=== PATIENT | female | born 1990 | race Caucasian/White ===

== ENCOUNTER → 2017-03-06 | Outpatient (CLI) | payer OTHER ==
[~2017-03-06] MED LIST: CELEXA20 MG PO; CIPRO 500MG TA500 MG PO; CYMBALTA60 MG PO; DICLEGIS1 TCP PO; FERROUS SULFAT325 M2 PO; HYDROXYZINE HCL25 M1 PO; K-DUR 20MEQ TA20 MEQ PO; LASIX 20MG. TAB20 MG PO; LEVAQUIN750 MG PO; LYRICA25 M1 PO; LYRICA50 MG PO; MACROBID100 M3 PO; MEDROL 4MG. DOSE4 MG PO; MOTRIN 400MG.400 MG PO; NOMEDS XX; PERCOCET 5/3251 EACH PO; PRENATAL PLUS1 TA1 PO; PROCARDIA10 MG; RELAFEN 750MG750 MG OR; SERTRALINE 50MG50 MG PO; ULTRAM 50 MG TA50 MG PO; ZOLOFT 50MG TAB50 MG PO; ZOLOFT25 MG PO; [UNRECOGNIZED DRUG - OTHER] PO
--- NOTE | 2017-03-07 12:19 | RADIOLOGY REPORT PS360 ---
PROCEDURE: 2-D M-mode and color Doppler study INDICATIONS FOR THE TEST: Chest painX COPD Heart MurmurX Tobacco SmokingX Palpitations Fatigue Syncope Edema HypertensionXDiabetes Mellitus Rheumatic Fever SOB KUHN Obesity Hyperlipidemia Family History HD Additional History PATIENT INFORMATION HEIGHT: 65 WEIGHT:230 GENDER: Female B/P:127/70 2-D/M-MODE INTERPRETATION: 2-D MEASUREMENTS OBSERVED VALUES IN CMS Right Ventricular Dimension (RVDd) 1.9 Interventricular Septum (Thickness)(IVsd) .9 Left Ventricular Internal Dimensions(LVIDd) 5.7 Left Ventricular Posterior Wall (Thickness)(LVPWd) 1.0 Aortic Root 2.9 Aortic Cusp Separation 1.8 Left Atrial Dimensions (LAD) 3.0 2D 1. The left atrium is normal size, left ventricle is normal size, there is no concentric left ventricular hypertrophy, visually estimated ejection fraction 55% with no obvious regional wall motion abnormality. 2. The right atrium and right ventricle are normal size and contractility. 3. The aortic, mitral, tricuspid and pulmonic valve are structurally normal. 4. No significant pericardial effusion noted. DOPPLER INTERROGATION: Doppler interrogation of the aortic mitral and tricuspid valvular presence of trace mitral and tricuspid regurgitation, tricuspid regurgitant jet velocity insufficient for calculation of the right ventricular systolic pressure, diastolic parameters are within normal range. CONCLUSION: 1. Normal left ventricular size, preserved left ventricular systolic function, visually estimated ejection fraction 55% with no obvious regional wall motion abnormality, diastolic parameters are within normal range. 2. Trace mitral and tricuspid regurgitation. 3. No significant pericardial effusion noted.
== END ==
LOC: RT 13:20
DX: R01.1 Cardiac murmur, unspecified (principal)

== ENCOUNTER 2017-06-16 21:36 | Emergency (ER) | payer OTHER ==
[~2017-06-16] VITALS: Ht 165.1 cm; Wt 98.4 kg
[2017-06-16 21:55] LABS: URINE BILIRUBIN - DIPSTICK NEGATIVE (NEG); URINE BLOOD NEGATIVE (NEG)
[2017-06-16] MEDS ORDERED: VENLAFAXINE HYD75 M1 PO (21:58)
[2017-06-16] MEDS ORDERED: LABETALOL HCL200 MG PO (21:59)
[2017-06-16] MEDS ORDERED: CYCLOBENZ5 MG PO (21:59)
[2017-06-16] MEDS ORDERED: POTASSIUM CHLO10 MEQ PO (22:00)
[2017-06-16] MEDS ORDERED: MONO-LINYAH1 TAB PO (22:00)
[2017-06-16] MEDS ORDERED: VITAMIN D31000 IU PO (22:01)
--- OUTSIDE RECORDS SUMMARY | 2017-06-16 22:19 | External Medical Summary Rpt ---
Author Author [employer] Organization [employer] Address Unknown Phone Unavailable Purpose Continuity of Care Document - through 2016
--- OUTSIDE RECORDS SUMMARY | 2017-06-16 22:19 | External Medical Summary Rpt ---
Author Author [employer] Bhatti, [employer] Organization [employer] Address Unknown Phone Unavailable
--- OUTSIDE RECORDS SUMMARY | 2017-06-16 22:19 | External Medical Summary Rpt ---
Demographics Preferred Language Wolof Marital Status Unknown Pentecostal Affiliation Unknown Race Unknown Ethnic Group Unknown Author Author BR[employer] Address Unknown Phone Immunization No patient found.
--- OUTSIDE RECORDS SUMMARY | 2017-06-16 22:19 | External Medical Summary Rpt ---
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 Name Role Phone Yohan Muhammad Unavailable Jesus JORDAN MD, Yohan Muhammad III, MD Purpose Continuity of Care Document - 04-16-2013 through 2016 Problems Code Diagnosis DOS Provider Status 305.1 305.1 04-16-2013 [place] TOBACCO USE [facility] 915.6 915.6 04-16-2013 [place] FOREIGN [facility] BODY [facility] E920.8 E920.8 04-16-2013 [place] ACC-CUTTING [facility] NEC Allergies, Adverse Reactions, Alerts Type Drug Allergy Adverse Reaction to Substance Substance Reaction Severity Cefaclor I-HIVES Intermediate Medications Na ND Rx Da Fi Fi Am Da Di Ph RX Ph St me C No te ll ll ou ys ag ar # ys at rm s nt no ma ic us Or Da si cy ia de te s n re d LI 63 06 0 No DO 32 -1 CA 30 5- Lo IN 20 20 ng E 11 13 er HC 0 L Ac 1% ti ve AL Vital Signs 04-16-2013 13:30 Name Value Interpretat Reference Comment ion Range Body 98.1 [degF] Temperature BP 86 mm[Hg] Diastolic BP Systolic 145 mm[Hg] Heart 96 /min Rate/Pulse O2% 97 % Respiratory 18 /min Rate 04-16-2013 13:29 Name Value Interpretat Reference Comment ion Range Body 98.1 [degF] Temperature 04-16-2013 12:54 Name Value Interpretat Reference Comment ion Range BP 89 mm[Hg] Diastolic BP Systolic 136 mm[Hg] Heart 97 /min Rate/Pulse O2% 97 % Respiratory 20 /min Rate Procedures Procedure DOS Code Location Performer Comment INCIS W 86.05 Yohan Muhammad BODY OR NIKKI MANUEL DEV FROM SKIN & SUBCUT TISSUE Encounters Encounter Start End Date Code Location Performer Type Date Emergency EUGENIO Muhammad (ER) 3 12:42 3 13:30 [facility] Yohan May
--- OUTSIDE RECORDS SUMMARY | 2017-06-16 22:19 | External Medical Summary Rpt ---
Author Author , BRITTA Landin BRIT[employer] Address Unknown Phone [email or web address] Care Team Providers Care Bible Reader Name Role Phone Yohan Muhammad Unavailable Jesus JORDAN MD, Yohan Muhammad III, MD Purpose Continuity of Care Document - 04-16-2013 through 2016 Problems Code Diagnosis DOS Provider Status 305.1 305.1 04-16-2013 [place] TOBACCO USE [facility] 915.6 915.6 04-16-2013 [place] FOREIGN [facility] BODY [facility] E920.8 E920.8 04-16-2013 [place] ACC-CUTTING [facility] NEC Allergies, Adverse Reactions, Alerts Type Drug [...] EUGENIO Muhammad (ER) 3 12:42 3 13:30 [facility] Yohan May
--- OUTSIDE RECORDS SUMMARY | 2017-06-16 22:19 | External Medical Summary Rpt ---
Demographics Preferred Language Estonian Marital Status Unknown Advent Affiliation Unknown Race Unknown Ethnic Group Unknown Author Author BRITTA Address Unknown Phone Immunization No patient found.
[2017-06-16 22:33] LABS: URINE SQUAMOUS CELLS OCC #/hpf (0-5)
--- NOTE | 2017-06-17 00:08 | Emergency Room Report ---
See Addendum History of Present Illness Time Seen by [id number] Presenting Problem in Triage Pt arrived:Walked Presenting Problem:C/O LOW BACK PAIN X 3-4 DAYS. WORSE TONIGHT. 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 N Clinical Suspician of Infection? N Mental Status: 1 - Regular (Normal Baseline) Sepsis Risk:Low Sepsis Risk Have you (or family members/close friends) recently traveled outside the [place]? N If Yes, where/when: Have you had exposure to infectious disease within the past month? N TB? Other? Specify: Source patient, RN notes reviewed, family, old records Exam Limitations no limitations Comment rt flank pain over the last day with no gross hematuria and no dysuria - has had kidney stone in past Cardiac Chest Pain Chest pain indicative of cardiac No Timing/Duration this evening Severity moderate ALLERGIES Coded Allergies: cefaclor (From CECLOR) (06/13/16) Home Medications Reported Medications Sertraline Hcl (Sertraline 50MG) 75 MG PO DAILY #30 HYDROXYZINE HCL (Hydroxyzine HCl) 25 MG PO QHS #30 VENLAFAXINE HCL (Venlafaxine HCl ER) 75 MG PO DAILY #90 Cyclobenzaprine Hcl (Cyclobenzaprine) 5 MG PO DAILY #30 LABETALOL HCL (Labetalol HCl) 200 MG PO BID #60 Potassium Chloride (POTASSIUM CHLORIDE 10mEq CAP) 10 MEQ PO DAILY #30 NORGESTIMATE-ETHINYL ESTRADIOL (Bollinger-Linyah 28 Tablet) 1 TAB PO DAILY #28 CHOLECALCIFEROL (VITAMIN D3) (Vitamin D) 1,000 IUNITS PO Q 48 HOURS History Medical History General CAD? No Angina: No [place]: No Hypertension? Yes Hyperlipidemia? No CHF? No DVT? No PE? No COPD? No Asthma? No Anemia? No GERD? No Gastric ulcers? No GI Bleed? No Hernia? Yes Thyroid Problems? No Hypothyroidism? No CVA? No Seizures? No Diabetes? No Renal Insuffiency? No End Stage Renal Disease? No UTI? Yes Stones? Yes BPH? No GB Disease: No Nephritic Syndrome? No Asplenia? No Hepatitis? No Sickle Cell Disease? No Arthritis? Yes Migraines? No Cataracts? No Glaucoma? No MRSA? No TB? No Anxiety? No Depression? No More? 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 Respiratory denies cough, denies shortness of breath, denies wheezing Cardiovascular denies chest pain, denies palpitations, denies syncope Gastrointestinal denies abdominal pain, denies diarrhea, denies vomiting Genitourinary see HPI. denies: abnormal vaginal bleeding, dysuria, frequency, hesitancy, hematuria. Musculoskeletal denies back pain, denies joint pain, denies joint swelling, denies neck pain Skin denies rash Psychiatric/Neurological denies headache, denies seizure Physical Exam Vital Signs Vital Signs Date Time Temp Pulse Resp B/P Pulse O2 O2 Flow FiO2 Ox Delivery Rate 06/16 2152 99.0 105 18 142/74 98 - WBC >12,000 or <4,000 or 10% bands? 2 or more SIRS Criteria Met? B/P:142/74 MAP:96 Creatinine >2.0? UA output<0.5ml/kg/hr for 2 hrs? Platelet count >100,000? Lactate >2.0mmol/1? INR >1.2 or PTT > than 60 sec? Evidence of Organ Dysfunction? Provider documented clinical suspician of infection? N Sepsis Criteria Count: 1 Sepsis Risk: Low Sepsis Risk General Appearance no apparent distress Eye Exam - bilateral eye PERRL, bilateral eye EOMI Ear, Nose, Throat normal ENT inspection Neck supple Respiratory Status No: respiratory distress. Cardiovascular regular rate/rhythm Peripheral Pulses Pulses normal Yes Gastrointestinal soft Back no CVA tenderness, no vertebral tenderness, bowel/bladder continent Extremities normal inspection Strength 4 Upper Ext (L), 4 Upper Ext (R), 4 Lower Ext (L), 4 Lower Ext (R) Neurologic alert, director network development II-XII nml as tested, no motor/sensory deficits Reflexes Reflexes normal No Mental status normal mood/affect Skin no rash cons.w/shingles Medical Decision Making LABS/Meds/Orders Pt receiving controlled substance in ED? No Results/Orders Laboratory Tests 06/16/172149: Urine Color YELLOW, Urine Appearance CLEAR, Urine pH 6.0, Ur Specific [place] >= 1.030, Urine Protein NEGATIVE, Urine Ketones NEGATIVE, Urine Blood NEGATIVE, Urine Nitrate NEGATIVE, Urine Bilirubin NEGATIVE, Urine Urobilinogen 0.2, Ur Leukocyte Esterase NEGATIVE, Urine RBC 3-5, Urine WBC OCC, Ur Squamous Epith Cells OCC, Urine Bacteria TRACE, Urine Mucus 3+, Urine Glucose NEGATIVE Orders Procedure Date/time Status CULTURE, URINE 06/17 8 Active URINALYSIS/COMPLETE 06/16 2151 Complete Departure Departure Time of Disposition 0001 Disposition DC Home or Self Care(routine) Clinical Impression Primary Impression: Acute flank pain Condition STABLE Referrals Toan Stewart MD (Family) Patient Instructions DI for Flank Pain Additional Instructions fluids and strain urine and call pcp about culture results Discharge Counseling Counseled pt/family regarding diagnosis, test results, medications/RX, follow up needs ED Critical Care Critical Care No at 0009
--- NOTE | 2017-06-17 00:08 | Emergency Room Report ---
See Addendum History of Present Illness Time Seen by [id number] Presenting Problem in Triage Pt arrived:Walked Presenting Problem:C/O LOW BACK PAIN X 3-4 DAYS. WORSE TONIGHT. 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 N Clinical Suspician of Infection? N Mental Status: 1 - Regular (Normal Baseline) Sepsis Risk:Low Sepsis Risk Have you (or family members/close friends) recently traveled outside the [place]? N If Yes, where/when: Have you had exposure to infectious disease within the past month? N TB? Other? Specify: Source patient, RN notes reviewed, family, old records Exam Limitations no limitations Comment rt flank pain over the last day with no gross hematuria and no dysuria - has had kidney stone in past Cardiac Chest Pain Chest pain indicative of cardiac No Timing/Duration this evening Severity moderate ALLERGIES Coded Allergies: cefaclor (From CECLOR) (06/13/16) Home Medications Reported Medications Sertraline Hcl (Sertraline 50MG) 75 MG PO DAILY #30 HYDROXYZINE HCL (Hydroxyzine HCl) 25 MG PO QHS #30 VENLAFAXINE HCL (Venlafaxine HCl ER) 75 MG PO DAILY #90 Cyclobenzaprine Hcl (Cyclobenzaprine) 5 MG PO DAILY #30 LABETALOL HCL (Labetalol HCl) 200 MG PO BID #60 Potassium Chloride (POTASSIUM CHLORIDE 10mEq CAP) 10 MEQ PO DAILY #30 NORGESTIMATE-ETHINYL ESTRADIOL ([place]-Linyah 28 Tablet) 1 TAB PO DAILY #28 CHOLECALCIFEROL (VITAMIN D3) (Vitamin D) 1,000 IUNITS PO Q 48 HOURS History Medical History General CAD? No Angina: No [place]: No Hypertension? Yes Hyperlipidemia? No CHF? No DVT? No PE? No COPD? No Asthma? No Anemia? No GERD? No Gastric ulcers? No GI Bleed? No Hernia? Yes Thyroid Problems? No Hypothyroidism? No CVA? No Seizures? No Diabetes? No Renal Insuffiency? No End Stage Renal Disease? No UTI? Yes Stones? Yes BPH? No GB Disease: No Nephritic Syndrome? No Asplenia? No Hepatitis? No Sickle Cell Disease? No Arthritis? Yes Migraines? No Cataracts? No Glaucoma? No MRSA? No TB? No Anxiety? No Depression? No More? 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 Respiratory denies cough, denies shortness of breath, denies wheezing Cardiovascular denies chest pain, denies palpitations, denies syncope Gastrointestinal denies abdominal pain, denies diarrhea, denies vomiting Genitourinary see HPI. denies: abnormal vaginal bleeding, dysuria, frequency, hesitancy, hematuria. Musculoskeletal denies back pain, denies joint pain, denies joint swelling, denies neck pain Skin denies rash Psychiatric/Neurological denies headache, denies seizure Physical Exam Vital Signs Vital Signs Date Time Temp Pulse Resp B/P Pulse O2 O2 Flow FiO2 Ox Delivery Rate 06/16 2152 99.0 105 18 142/74 98 - WBC >12,000 or <4,000 or 10% bands? 2 or more SIRS Criteria Met? B/P:142/74 MAP:96 Creatinine >2.0? UA output<0.5ml/kg/hr for 2 hrs? Platelet count >100,000? Lactate >2.0mmol/1? INR >1.2 or PTT > than 60 sec? Evidence of Organ Dysfunction? Provider documented clinical suspician of infection? N Sepsis Criteria Count: 1 Sepsis Risk: Low Sepsis Risk General Appearance no apparent distress Eye Exam - bilateral eye PERRL, bilateral eye EOMI Ear, Nose, Throat normal ENT inspection Neck supple Respiratory Status No: respiratory distress. 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 No Results/Orders Laboratory Tests 06/16/172149: Urine Color YELLOW, Urine Appearance CLEAR, Urine pH 6.0, Ur Specific [place] >= 1.030, Urine Protein NEGATIVE, Urine Ketones NEGATIVE, Urine Blood NEGATIVE, Urine Nitrate NEGATIVE, Urine Bilirubin NEGATIVE, Urine Urobilinogen 0.2, Ur Leukocyte Esterase NEGATIVE, Urine RBC 3-5, Urine WBC OCC, Ur Squamous Epith Cells OCC, Urine Bacteria TRACE, Urine Mucus 3+, Urine Glucose NEGATIVE Orders Procedure Date/time Status CULTURE, URINE 06/17 8 Active URINALYSIS/COMPLETE 06/16 2151 Complete Departure Departure Time of Disposition 0001 Disposition DC Home or Self Care(routine) Clinical Impression Primary Impression: Acute flank pain Condition STABLE Referrals Toan Stewart MD (Family) Patient Instructions DI for Flank Pain Additional Instructions fluids and strain urine and call pcp about culture results Discharge Counseling Counseled pt/family regarding diagnosis, test results, medications/RX, follow up needs ED Critical Care Critical Care No at 0009
[2017-06-17 00:17] VITALS: BP 138/68
== END 2017-06-17 00:18 | disposition home or self-care (01) ==
LOC: ER 21:36
PROVIDERS: Emergency Medicine
DX: R10.11 Right upper quadrant pain (principal); Z79.899 Other long term (current) drug therapy; I10 Essential (primary) hypertension; Z72.0 Tobacco use

== ENCOUNTER → 2017-06-19 | Outpatient (CLI) | payer OTHER ==
[~2017-06-19] MED LIST changes: +CYCLOBENZ5 MG PO; +LABETALOL HCL200 MG PO; +MONO-LINYAH1 TAB PO; +POTASSIUM CHLO10 MEQ PO; +VENLAFAXINE HYD75 M1 PO; +VITAMIN D31000 IU PO
--- NOTE | 2017-06-19 16:41 | RADIOLOGY REPORT PS360 ---
US RUQ-(ABD LTD)1ORGAN/QUAD/FU HISTORY: RUQ PAIN, SLUDGE ORDERING PHYSICIAN: CHAUNCYE BROOKS APRN PATIENT AGE: 26 years COMPARISON: None FINDINGS: PANCREAS:Unremarkable. No obvious mass or abnormal fluid collection. No ductal dilatation LIVER:No focal liver lesions demonstrated. Homogeneous echogenicity. No intrahepatic biliary ductal dilatation evident RIGHT KIDNEY:Unremarkable. Normal size and echogenicity. No hydronephrosis GALLBLADDER:No gallstones, gallbladder wall thickening, pericholecystic fluid, or biliary dilatation. Gallbladder is slightly distended with sludge or concentrated bile within the gallbladder. IMPRESSION: 1. Mildly distended gallbladder with small amount sludge versus concentrated bile. 2. No gallstones or other significant anomalies
--- NOTE | 2017-06-19 16:41 | RADIOLOGY REPORT PS360 ---
US RUQ-(ABD LTD)1ORGAN/QUAD/FU HISTORY: RUQ PAIN, SLUDGE ORDERING PHYSICIAN: CHAUNCEY BROOKS APRN PATIENT AGE: 26 years COMPARISON: None FINDINGS: PANCREAS:Unremarkable. No obvious mass or abnormal fluid collection. No ductal dilatation LIVER:No focal liver lesions demonstrated. Homogeneous echogenicity. No intrahepatic biliary ductal dilatation evident RIGHT KIDNEY:Unremarkable. Normal size and echogenicity. No hydronephrosis GALLBLADDER:No gallstones, gallbladder wall thickening, pericholecystic fluid, or biliary dilatation. Gallbladder is slightly distended with sludge or concentrated bile within the gallbladder. IMPRESSION: 1. Mildly distended gallbladder with small amount sludge versus concentrated bile. 2. No gallstones or other significant anomalies
== END ==
LOC: RAD 12:22
DX: R10.11 Right upper quadrant pain (principal); K82.8 Other specified diseases of gallbladder

== ENCOUNTER 2017-07-21 14:24 | Emergency (ER) | payer OTHER ==
[~2017-07-21] VITALS: Ht 165.1 cm; Wt 99.8 kg
--- NOTE | 2017-07-21 14:43 | Emergency Room Report ---
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 N Clinical Suspician of Infection? N Mental Status: 1 - Regular (Normal Baseline) Sepsis Risk:Low Sepsis Risk Have you (or family members/close friends) recently traveled outside the [place]? N If Yes, where/when: Have you had exposure to infectious disease within the past month? N TB? Other? Specify: Source patient, RN notes reviewed Exam Limitations no limitations Comment Pt reports she had her GB removed on 07/03 and was doing well until yesterday when she laid down with her child. Woke up on her side and developed a really bad pain in her RUQ but no vomiting, diarrhea or fever but the pain has peristed. Cardiac Chest Pain Chest pain indicative of cardiac No ALLERGIES Coded Allergies: acetaminophen (From NORCO) (07/21/17) cefaclor (From CECLOR) (07/03/17) hydrocodone (From NORCO) (07/21/17) Home Medications Reported Medications Sertraline Hcl (Sertraline 50MG) 75 MG PO DAILY #30 HYDROXYZINE HCL (Hydroxyzine HCl) 25 MG PO QHS #30 VENLAFAXINE HCL (Venlafaxine HCl ER) 75 MG PO DAILY #90 Cyclobenzaprine Hcl (Cyclobenzaprine) 5 MG PO DAILY #30 LABETALOL HCL (Labetalol HCl) 200 MG PO BID #60 Potassium Chloride (POTASSIUM CHLORIDE 10mEq CAP) 10 MEQ PO DAILY #30 NORGESTIMATE-ETHINYL ESTRADIOL ([place]-Linyah 28 Tablet) 1 TAB PO DAILY #28 CHOLECALCIFEROL (VITAMIN D3) (Vitamin D) 1,000 IUNITS PO Q 48 HOURS History Medical History General CAD? No Angina: No [place]: No Hypertension? Yes Hyperlipidemia? No CHF? No DVT? No PE? No COPD? No Asthma? No Anemia? No GERD? No Gastric ulcers? No GI Bleed? No Hernia? Yes Thyroid Problems? No Hypothyroidism? No CVA? No Seizures? No Diabetes? No Renal Insuffiency? No End Stage Renal Disease? No UTI? Yes Stones? Yes BPH? No GB Disease: No Nephritic Syndrome? No Asplenia? No Hepatitis? No Sickle Cell Disease? No Arthritis? Yes Migraines? No Cataracts? No Glaucoma? No MRSA? No HIV? No TB? No Anxiety? No Depression? No Cancer? No More? 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 Family History Family Hx Diabetes Yes CAD Yes Hypertension Yes Hyperlipidemia Yes Cancer Yes Social History Smoking Hx Smoker: Current Every Day Smoker Tobacco: Yes Type Cigarettes Packs/day 1 1/2 - 2 Packs Alcohol Alcohol: No Review of Systems All Other Systems Reviewed and Negative Constitutional see HPI Gastrointestinal see HPI Physical Exam Vital Signs Vital Signs Date Time Temp Pulse Resp B/P Pulse O2 O2 Flow FiO2 Ox Delivery Rate 07/21 1559 98 18 154/75 99 07/21 1431 98.5 100 16 162/80 98 General Appearance normal appearance, WD/WN, no apparent distress Respiratory Status No: respiratory distress. 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 No Results/Orders Laboratory Tests 07/21/17 1445: Urine Color DK YELLOW, Urine Appearance CLEAR, Urine pH 6.0, Ur Specific [place] >= 1.030, Urine Protein NEGATIVE, Urine Ketones NEGATIVE, Urine Blood NEGATIVE, Urine Nitrate NEGATIVE, Urine Bilirubin NEGATIVE, Urine Urobilinogen 0.2, Ur Leukocyte Esterase NEGATIVE, Urine RBC NONE, Urine WBC OCC, Ur Squamous Epith Cells OCC, Urine Renal Cells OCC, Urine Bacteria 2+, Coarse Granular Casts OCC, Urine Mucus 4+, Urine Glucose NEGATIVE 07/21/17 1437: Troponin I < 0.02, Lipase 115 07/21/17 1437: Sodium 140, Potassium 3.6, Chloride 105, Carbon Dioxide 26, BUN 12, Creatinine 0.8, Estimated Creat Clear 165, Estimated GFR (MDRD) 85, Glucose 103, Calcium 8.9, Total Bilirubin 0.1 L, AST 4 L, ALT 16, Alkaline Phosphatase 90, Total Protein 7.4, Albumin 3.4, Globulin 4.0 H, Albumin/Globulin Ratio 0.9 L, WBC 9.4, RBC 4.32, Hgb 12.9, Hct 37.3, MCV 86.4, RDW 12.7, Plt Count 321, MPV 8.8, Gran % 53.8, Gran # 5.0, Lymphocytes % 37.6, Monocytes % 5.5, Eosinophils % 2.1, Basophils % 0.9, Lymphocytes # 3.5, Monocytes # 0.5, Eosinophils # 0.2, Basophils # 0.1, PUBS MCHC 34.7, MCH 30.0 Current Medication Orders Sig/Kathie Start time Last Medication Dose Route Stop Time Status Admin Sodium Chloride 10 ML PRN PRN 07/21 1445 AC IV 07/22 1438 Orders Procedure Date/time Status DIET-NOTHING BY MOUTH 07/[address] ABD/PELVIS REQ 07/21 1554 Complete CULTURE, URINE 07/21 1445 Active ELECTROCARDIOGRAM REQUEST 07/21 1443 Active TROPONIN I 07/21 1443 Complete LIPASE 07/21 1443 Complete IV SALINE LOCK 07/21 1438 Active URINALYSIS/COMPLETE 07/21 1438 Complete URINE 07/21 1438 Complete CBC WITH AUTO DIFF 07/21 1438 Complete CHEM 12 PROFILE 07/21 1438 Complete 12 LEAD EKG-[place] (INITIAL) 07/21 UNK Active XRAY/CT/US XRAY/CT/US CT abdomen, pelvis CT interpretation by discussed w/radiologist Time results known: 1724 CT Results Right paracolic gutter inflammation..could be post surgical but can not rule out early appendicitis Departure Departure Time of Disposition 1724 Disposition DC Home or Self Care(routine) Clinical Impression Primary Impression: Abdominal pain Qualifiers: Abdominal location: right upper quadrant Qualified Code: R10.11 - Right upper quadrant pain Condition STABLE Referrals SP MARIE MD Patient Instructions Acute Abdominal Pain, DI for Abdominal Pain-Adult Additional Instructions May go home but instructed to not eat anything heavy tonight and stay on clear liquids after MN. Followup with Dr. Marie in office in the AM or if pain gets worse, come back to the ED and get a CT with IV and oral contrast Discharge Counseling Counseled pt/family regarding diagnosis, test results, home care, follow up needs ED Critical Care Critical Care No If Critical Care minutes are documented, the time involved in the performance of seperately reportable procedures was not counted toward critical care time documented. I directly delivered medical care to this critically ill and/or injured patient. Timely evaluation and treatment was necessary to address the significant organ system(s) dysfunction present in this patient. at 1889
[2017-07-21 14:53] LABS: HEMOGLOBIN 12.9 g/dL (12.2-16.2); LYMPH # 3.5 K/mm3 (0.7-4.5); LYMPH % 37.6 % (10-50.0)
[2017-07-21 14:53] LABS: URINE BILIRUBIN - DIPSTICK NEGATIVE (NEG); URINE BLOOD NEGATIVE (NEG)
[2017-07-21 15:13] LABS: URINE RENAL CELLS OCC #/HPF; URINE SQUAMOUS CELLS OCC #/hpf (0-5)
--- NOTE | 2017-07-21 16:29 | RADIOLOGY REPORT PS360 ---
CT ABD PELVIS W/O CONTRAST CLINICAL INDICATION: Upper abdominal pain, recent surgery on 07/03/2017 ABD PAIN ORDERING PHYSICIAN: Farzana Sylvester MD PATIENT AGE: 26 years COMPARISON: 06/18/2017 TECHNIQUE: Axial images obtained with sagittal and coronal reformats. PROCEDURE: Oral Contrast: None IV Contrast: None . FINDINGS: No acute finding in the lung bases. There has been an interval cholecystectomy. No biliary dilatation. No evidence of biloma or post operative abscess. Postsurgical changes are present involving the anterior abdominal wall in the right upper quadrant. There is mild thickening of the right paracolic gutter with slight increased density in the hepatorenal space which could be postsurgical. No hydronephrosis or obstructing renal or ureteral calculi. Spleen and adrenal glands and pancreas have an unremarkable appearance. The appendix is retrocecal with the tip overlying the inferior aspect of the right hepatic lobe. There is very minimal thickening of the paracolic gutter on the right just inferior to the appendix. There is some minimal ill-definition of the superior aspect of the appendix. This however may be due to postsurgical change as opposed to inflammatory changes of the appendix. The appendix does not appear thickened. If there is clinical suspicion for appendicitis then repeat study with IV and oral contrast may be of further value. There are bilateral tubal ligation clips present. No pelvic mass or abnormal fluid collection. No evidence of diverticulitis or intestinal obstruction or free air. No acute bony anomalies. IMPRESSION: 1. Interval cholecystectomy. No evidence of biloma or postsurgical abscess. 2. Mild thickening of the right paracolic gutter and lateral conal fascia which could be postsurgical. This thickening is adjacent to the superior aspect of a retrocecal appendix which is normal in caliber. There is some ill-definition of the most distal aspect of the appendix. Cannot completely exclude early inflammatory changes. If there is clinical concern for appendicitis then, would recommend follow-up exam in 12 to 24 hours with IV and oral contrast.
[2017-07-21 17:59] VITALS: BP 145/88
== END 2017-07-21 18:01 | disposition home or self-care (01) ==
LOC: ER 14:24
PROVIDERS: General Practice
DX: R10.11 Right upper quadrant pain (principal); I10 Essential (primary) hypertension; F17.210 Nicotine dependence, cigarettes, uncomplicated; Z79.3 Long term (current) use of hormonal contraceptives; Z79.899 Other long term (current) drug therapy

== ENCOUNTER 2017-07-22 07:43 | Emergency (ER) | payer OTHER ==
[~2017-07-22] VITALS: Ht 165.1 cm; Wt 99.8 kg
[2017-07-22 08:09] LABS: HEMOGLOBIN 13.1 g/dL (12.2-16.2); LYMPH # 2.3 K/mm3 (0.7-4.5); LYMPH % 22.6 % (10-50.0)
--- NOTE | 2017-07-22 08:17 | Emergency Room Report ---
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 N Clinical Suspician of Infection? N Mental Status: 1 - Regular (Normal Baseline) Sepsis Risk:Low Sepsis Risk Have you (or family members/close friends) recently traveled outside the [place]? N If Yes, where/when: Have you had exposure to infectious disease within the past month? TB? Other? Specify: Source patient, RN notes reviewed Exam Limitations no limitations Comment Pt seen in the ED yesterday with RUQ abd pain and history that she had her GB removed on 07/[address] Marie. She had laid down with her daughter the night before last and when she woke up she was having RUQ pain but no nausea, vomiting or diarrhea and no fever. Yesterday she had a CT of Abd and Pelvis which was ? positive for acute appendicitis. I spoke with her PCP and with Dr. oKenig who was control room supervisor for Dr. Marie and it was decided to let her go home and followup with Dr. Marie this morning but she came back to the ED this morning with increased pain in the Right Upper quadrant and is being prepped now for a CT of the Abd and Pelivis with IV and oral contrast to better delineate whether this is truly Acute Appendicitis or not. Cardiac Chest Pain Chest pain indicative of cardiac No Timing/Duration yesterday ALLERGIES Coded Allergies: acetaminophen (From NORCO) (07/22/17) cefaclor (From CECLOR) (07/22/17) hydrocodone (From NORCO) (07/22/17) Home Medications Reported Medications Sertraline Hcl (Sertraline 50MG) 75 MG PO DAILY #30 HYDROXYZINE HCL (Hydroxyzine HCl) 25 MG PO QHS #30 VENLAFAXINE HCL (Venlafaxine HCl ER) 75 MG PO DAILY #90 Cyclobenzaprine Hcl (Cyclobenzaprine) 5 MG PO DAILY #30 LABETALOL HCL (Labetalol HCl) 200 MG PO BID #60 Potassium Chloride (POTASSIUM CHLORIDE 10mEq CAP) 10 MEQ PO DAILY #30 NORGESTIMATE-ETHINYL ESTRADIOL ([place]-Linyah 28 Tablet) 1 TAB PO DAILY #28 CHOLECALCIFEROL (VITAMIN D3) (Vitamin D) 1,000 IUNITS PO Q 48 HOURS History Medical History General CAD? No Angina: No [place]: No Hypertension? Yes Hyperlipidemia? No CHF? No DVT? No PE? No COPD? No Asthma? No Anemia? No GERD? No Gastric ulcers? No GI Bleed? No Hernia? Yes Thyroid Problems? No Hypothyroidism? No CVA? No Seizures? No Diabetes? No Renal Insuffiency? No End Stage Renal Disease? No UTI? Yes Stones? Yes BPH? No GB Disease: No Nephritic Syndrome? No Asplenia? No Hepatitis? No Sickle Cell Disease? No Arthritis? Yes Migraines? No Cataracts? No Glaucoma? No MRSA? No HIV? No TB? No Anxiety? No Depression? No Cancer? No More? 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 N/A Family History Family Hx Diabetes Yes CAD Yes Hypertension Yes Hyperlipidemia Yes Cancer Yes Social History Smoking Hx Smoker: Current Every Day Smoker Tobacco: Yes Type Cigarettes Packs/day 1 1/2 - 2 Packs Alcohol Alcohol: No Review of Systems All Other Systems Reviewed and Negative Constitutional see HPI Gastrointestinal see HPI Physical Exam Vital Signs Vital Signs Date Time Temp Pulse Resp B/P Pulse O2 O2 Flow FiO2 Ox Delivery Rate 07/22 0948 75 18 158/74 98 07/22 0832 18 07/22 0747 98.5 95 18 145/83 98 General Appearance normal appearance, moderate distress Respiratory Status No: respiratory distress. Lung Sounds bilateral: normal breath sounds. 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 No Results/Orders Laboratory Tests 07/22/17 0754: Sodium 137, Potassium 4.0, Chloride 105, Carbon Dioxide 24, BUN 12, Creatinine 0.9, Estimated Creat Clear 147, Estimated GFR (MDRD) 75, Glucose 95, Calcium 8.9 , Total Bilirubin 0.3, AST 7 L, ALT 15, Alkaline Phosphatase 83, Total Protein 7.4, Albumin 3.5, Globulin 3.9 H, Albumin/Globulin Ratio 0.9 L, Lipase 78, WBC 10.2, RBC 4.37, Hgb 13.1, Hct 37.9, MCV 86.7, RDW 12.7, Plt Count 307, MPV 8.8, Gran % 70.2, Gran # 7.1, Lymphocytes % 22.6, Monocytes % 5.1, Eosinophils % 1.4, Basophils % 0.7, Lymphocytes # 2.3, Monocytes # 0.5, Eosinophils # 0.2, Basophils # 0.1, PUBS MCHC 34.5, MCH 29.9 Current Medication Orders Sig/Kathie Start time Last Medication Dose Route Stop Time Status Admin Iopamidol 75 ML ONCE ONE 07/22 1000 DC 07/22 IV 07/22 1001 0948 Sodium Chloride 10 ML PRN PRN 07/22 1000 AC 07/22 IV 07/22 1117 0948 Morphine Sulfate 2 MG ONCE ONE 07/22 0830 DCr 07/22 IV 07/22 0831 0832 Ondansetron HCl 4 MG ONCE ONE 07/22 0830 DC 07/22 IV 07/22 0831 0831 Sodium Chloride 999 ML .Q6H40M 07/22 08 AC 07/22 IV 0831 Sodium Chloride 200 ML Q1HP PRN 07/22 0830 AC IV 07/23 0820 Sodium Chloride 1,000 ML .STK-MED ONE 07/22 08 DC IV Morphine Sulfate 0 .STK-MED ONE 07/22 827 DCr .ROUTE Ondansetron HCl 0 .STK-MED ONE 07/22 08 DC .ROUTE Diatrizoate Meglum/ 0 .STK-MED ONE 07/22 08 DC Diatrizoate Sod .ROUTE Sodium Chloride 10 ML PRN PRN 07/22 0800 AC IV 07/23 0757 Orders Procedure Date/time Status DIET-NOTHING BY MOUTH 07/[address] ABD/PELVIS REQ 07/22 075 Complete IV SALINE LOCK 07/22 758 Active LIPASE 07/22 075 Complete CBC WITH AUTO DIFF 07/22 758 Complete CHEM 12 PROFILE 07/22 758 Complete XRAY/CT/US XRAY/CT/US CT abdomen, pelvis CT interpretation by discussed w/radiologist Time results known: 1039 CT Results normal/NAD, mild post surgical changes but nothing acute. Appendix is normal Departure Departure Time of Disposition 1040 Disposition DC Home or Self Care(routine) Clinical Impression Primary Impression: RUQ abdominal pain Condition STABLE Referrals SP MARIE MD Patient Instructions DI for Abdominal Pain-Adult Additional Instructions Stay on clear liquids for the next couple of days and then gradually increase diet. If symptoms worsen, followup with Dr. Marie for re-evaluation Discharge Counseling Counseled pt/family regarding diagnosis, test results, medications/RX, home care, follow up needs Prescriptions Current Visit Scripts Dicyclomine Hcl (Bentyl (Generic) 10MG Capsule) 10 MG PO AC & HS #60 CAP ED Critical Care Critical Care No If Critical Care minutes are documented, the time involved in the performance of seperately reportable procedures was not counted toward critical care time documented. I directly delivered medical care to this critically ill and/or injured patient. Timely evaluation and treatment was necessary to address the significant organ system(s) dysfunction present in this patient. at 1042
--- NOTE | 2017-07-22 08:17 | Emergency Room Report ---
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 N Clinical Suspician of Infection? N Mental Status: 1 - Regular (Normal Baseline) Sepsis Risk:Low Sepsis Risk Have you (or family members/close friends) recently traveled outside the [place]? N If Yes, where/when: Have you had exposure to infectious disease within the past month? TB? Other? Specify: Source patient, RN notes reviewed Exam Limitations no limitations Comment Pt seen in the ED yesterday with RUQ abd pain and history that she had her GB removed on 07/[address] Marie. She had laid down with her daughter the night before last and when she woke up she was having RUQ pain but no nausea, vomiting or diarrhea and no fever. Yesterday she had a CT of Abd and Pelvis which was ? positive for acute appendicitis. I spoke with her PCP and with Dr. Koenig who was conference reservationist for Dr. Marie and it was decided to let her go home and followup with Dr. Marie this morning but she came back to the ED this morning with increased pain in the Right Upper quadrant and is being prepped now for a CT of the Abd and Pelivis with IV and oral contrast to better delineate whether this is truly Acute Appendicitis or not. Cardiac Chest Pain Chest pain indicative of cardiac No Timing/Duration yesterday ALLERGIES Coded Allergies: acetaminophen (From NORCO) (07/22/17) cefaclor (From CECLOR) (07/22/17) hydrocodone (From [facility]CO) (07/22/17) Home Medications Reported Medications Sertraline Hcl (Sertraline 50MG) 75 MG PO DAILY #30 HYDROXYZINE HCL (Hydroxyzine HCl) 25 MG PO QHS #30 VENLAFAXINE HCL (Venlafaxine HCl ER) 75 MG PO DAILY #90 Cyclobenzaprine Hcl (Cyclobenzaprine) 5 MG PO DAILY #30 LABETALOL HCL (Labetalol HCl) 200 MG PO BID #60 Potassium Chloride (POTASSIUM CHLORIDE 10mEq CAP) 10 MEQ PO DAILY #30 NORGESTIMATE-ETHINYL ESTRADIOL ([place]inyah 28 Tablet) 1 TAB PO DAILY #28 CHOLECALCIFEROL (VITAMIN D3) (Vitamin D) 1,000 IUNITS PO Q 48 HOURS History Medical History General CAD? No Angina: No [place]: No Hypertension? Yes Hyperlipidemia? No CHF? No DVT? No PE? No COPD? No Asthma? No Anemia? No GERD? No Gastric ulcers? No GI Bleed? No Hernia? Yes Thyroid Problems? No Hypothyroidism? No CVA? No Seizures? No Diabetes? No Renal Insuffiency? No End Stage Renal Disease? No UTI? Yes Stones? Yes BPH? No GB Disease: No Nephritic Syndrome? No Asplenia? No Hepatitis? No Sickle Cell Disease? No Arthritis? Yes Migraines? No Cataracts? No Glaucoma? No MRSA? No HIV? No TB? No Anxiety? No Depression? No Cancer? No More? 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 N/A Family History Family Hx Diabetes Yes CAD Yes Hypertension Yes Hyperlipidemia Yes Cancer Yes Social History Smoking Hx Smoker: Current Every Day Smoker Tobacco: Yes Type Cigarettes Packs/day 1 1/2 - 2 Packs Alcohol Alcohol: No Review of Systems All Other Systems Reviewed and Negative Constitutional see HPI Gastrointestinal see HPI Physical Exam Vital Signs Vital Signs Date Time Temp Pulse Resp B/P Pulse O2 O2 Flow FiO2 Ox Delivery Rate 07/22 0948 75 18 158/74 98 07/22 0832 18 07/22 0747 98.5 95 18 145/83 98 General Appearance normal appearance, moderate distress Respiratory Status No: respiratory distress. Lung Sounds bilateral: normal breath sounds. 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 No Results/Orders Laboratory Tests 07/22/17 0754: Sodium 137, Potassium 4.0, Chloride 105, Carbon Dioxide 24, BUN 12, Creatinine 0.9, Estimated Creat Clear 147, Estimated GFR (MDRD) 75, Glucose 95, Calcium 8.9 , Total Bilirubin 0.3, AST 7 L, ALT 15, Alkaline Phosphatase 83, Total Protein 7.4, Albumin 3.5, Globulin 3.9 H, Albumin/Globulin Ratio 0.9 L, Lipase 78, WBC 10.2, RBC 4.37, Hgb 13.1, Hct 37.9, MCV 86.7, RDW 12.7, Plt Count 307, MPV 8.8, Gran % 70.2, Gran # 7.1, Lymphocytes % 22.6, Monocytes % 5.1, Eosinophils % 1.4, Basophils % 0.7, Lymphocytes # 2.3, Monocytes # 0.5, Eosinophils # 0.2, Basophils # 0.1, PUBS MCHC 34.5, MCH 29.9 Current Medication Orders Sig/Kathie Start time Last Medication Dose Route Stop Time Status Admin Iopamidol 75 ML ONCE ONE 07/22 1000 DC 07/22 IV 07/22 1001 0948 Sodium Chloride 10 ML PRN PRN 07/22 1000 AC 07/22 IV 07/22 1117 0948 Morphine Sulfate 2 MG ONCE ONE 07/22 0830 DCr 07/22 IV 07/22 0831 0832 Ondansetron HCl 4 MG ONCE ONE 07/22 0830 DC 07/22 IV 07/22 0831 0831 Sodium Chloride 999 ML .Q6H40M 07/22 08 AC 07/22 IV 0831 Sodium Chloride 200 ML Q1HP PRN 07/22 0830 AC IV 07/23 0820 Sodium Chloride 1,000 ML .STK-MED ONE 07/22 08 DC IV Morphine Sulfate 0 .STK-MED ONE 07/22 827 DCr .ROUTE Ondansetron HCl 0 .STK-MED ONE 07/22 08 DC .ROUTE Diatrizoate Meglum/ 0 .STK-MED ONE 07/22 08 DC Diatrizoate Sod .ROUTE Sodium Chloride 10 ML PRN PRN 07/22 0800 AC IV 07/23 0757 Orders Procedure Date/time Status DIET-NOTHING BY MOUTH 07/[address] ABD/PELVIS REQ 07/22 075 Complete IV SALINE LOCK 07/22 758 Active LIPASE 07/22 075 Complete CBC WITH AUTO DIFF 07/22 758 Complete CHEM 12 PROFILE 07/22 758 Complete XRAY/CT/US XRAY/CT/US CT abdomen, pelvis CT interpretation by discussed w/radiologist Time results known: 1039 CT Results normal/NAD, mild post surgical changes but nothing acute. Appendix is normal Departure Departure Time of Disposition 1040 Disposition DC Home or Self Care(routine) Clinical Impression Primary Impression: RUQ abdominal pain Condition STABLE Referrals SP MARIE MD Patient Instructions DI for Abdominal Pain-Adult Additional Instructions Stay on clear liquids for the next couple of days and then gradually increase diet. If symptoms worsen, followup with Dr. Marie for re-evaluation Discharge Counseling Counseled pt/family regarding diagnosis, test results, medications/RX, home care, follow up needs Prescriptions Current Visit Scripts Dicyclomine Hcl (Bentyl (Generic) 10MG Capsule) 10 MG PO AC & HS #60 CAP ED Critical Care Critical Care No If Critical Care minutes are documented, the time involved in the performance of seperately reportable procedures was not counted toward critical care time documented. I directly delivered medical care to this critically ill and/or injured patient. Timely evaluation and treatment was necessary to address the significant organ system(s) dysfunction present in this patient. at 1042
--- NOTE | 2017-07-22 10:26 | RADIOLOGY REPORT PS360 ---
CT ABD PELVIS W/ CONTRAST HISTORY: EARLY APPENDICITIS ON PREV SCAN right lower quadrant pain. Right upper and lower abdominal pain with nausea Recent surgery 07/03/2017. Patient Age: 26 years: Female Ordering Physician: Farzana Sylvester MD TECHNIQUE: Helical CT scanning performed through abdomen and pelvis following 75 cc Isovue-370 well as oral contrast COMPARISON :Yesterday's 07/21/2017 CT abdomen and pelvis without contrast & ultrasound; as well as 06/18/2017 CT abdomen .. FINDINGS First of all attention is directed towards the region of the appendix. No evidence of appendicitis by CT. The oral contrast fills the small, normal caliber appendix. No enhancement of the appendiceal wall. No wall thickening.. The tip of the appendix extends such that it resides just adjacent to the tip of right lobe of liver.. We again see the mild thickening along the right paracolic gutter and lateral conal fascia which extends inferiorly from the tip the liver to adjacent to the appendix. This is unchanged since yesterday but is a change since 06/18/2017 CT. I would note the patient has had interval cholecystectomy since June this year.. I suspect this is somehow related The cholecystectomy site shows no fluid collection no obvious hematoma or evidence of biloma. No fluid collections seen on CT nor ultrasound from 06/19/2017. The terminal ileum appears normal. There is no free fluid at the abdomen or pelvis. Moderate stool is seen throughout the rectosigmoid colon with question some mild wall thickening at the transverse colon noted today but not seen yesterday. It may merely reflect lack of distention but cannot exclude early colitis. The right colon contains moderate stool. The small bowel appears generous but normal caliber with a few small scattered air-fluid levels but no significant dilatation. Good transit and progression of oral contrast through the small bowel speaks against a prominent ileus or obstruction.. Proximal small bowel and stomach unremarkable.. Liver.: No discrete focal lesion. Overall normal size Generous length right lobe liver measuring 20 cm. Spleen unremarkable. Adrenals unremarkable. Pancreas unremarkable Kidneys no calculi nor hydronephrosis. Slight fullness of the right ureter down to where crosses iliac vessels most likely reflects extrinsic compression from such. No ureteral calculi evident. Pelvis. Urinary bladder appears satisfactory. Anteverted normal size uterus. Bilateral tubal ligation clips. No adnexal masses. Small right left ovary likely contains small follicles. IMPRESSION 1. The appendix appears normal. It fills with contrast, & Normal caliber with no wall thickening nor enhancement. 2. The mild thickening & stranding along the right paracolic gutter & lateral conal fascia is again noted... Most evident just beneath the inferior margin of tip of right lobe of liver. I suspect these features related to the recent cholecystectomy performed July 03, 2017. Cholecystectomy site otherwise unremarkable by CT and yesterday's ultrasound Minor observations: 3. Mild wall thickening transverse colon noted today likely reflects lack of distention, although could not exclude early developing colitis. Clinical correlation required. No liquid stool nor air-fluid levels however to support the latter 4. Small bowel upper normal in caliber distally with a few air-fluid levels. Could reflect very minor ileus, but there is good progression & transit of oral contrast through the small bowel. 5. No definitive findings to account for right-sided pain.. Pelvis unremarkable. No adnexal masses
--- NOTE | 2017-07-22 10:50 | Emergency Room Report ---
See Addendum History of Present Illness Time Seen by MD Amador ALLERGIES Coded Allergies: acetaminophen (From NORCO) (07/22/17) cefaclor (From CECLOR) (07/22/17) hydrocodone (From [facility]) (07/22/17) Home Medications Reported Medications Sertraline Hcl (Sertraline 50MG) 75 MG PO DAILY #30 HYDROXYZINE HCL (Hydroxyzine HCl) 25 MG PO QHS #30 VENLAFAXINE HCL (Venlafaxine HCl ER) 75 MG PO DAILY #90 Cyclobenzaprine Hcl (Cyclobenzaprine) 5 MG PO DAILY #30 LABETALOL HCL (Labetalol HCl) 200 MG PO BID #60 Potassium Chloride (POTASSIUM CHLORIDE 10mEq CAP) 10 MEQ PO DAILY #30 NORGESTIMATE-ETHINYL ESTRADIOL (Loving-Linyah 28 Tablet) 1 TAB PO DAILY #28 CHOLECALCIFEROL (VITAMIN D3) (Vitamin D) 1,000 IUNITS PO Q 48 HOURS History Medical History General CAD? No Angina: No ND: No Hypertension? Yes Hyperlipidemia? No CHF? No DVT? No PE? No COPD? No Asthma? No Anemia? No GERD? No Gastric ulcers? No GI Bleed? No Hernia? Yes Thyroid Problems? No Hypothyroidism? No CVA? No Seizures? No Diabetes? No Renal Insuffiency? No End Stage Renal Disease? No UTI? Yes Stones? Yes BPH? No GB Disease: No Nephritic Syndrome? No Asplenia? No Hepatitis? No Sickle Cell Disease? No Arthritis? Yes Migraines? No Cataracts? No Glaucoma? No MRSA? No HIV? No TB? No Anxiety? No Depression? No Cancer? No More? 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 No Results/Orders Laboratory Tests 07/22/17 0754: Sodium 137, Potassium 4.0, Chloride 105, Carbon Dioxide 24, BUN 12, Creatinine 0.9, Estimated Creat Clear 147, Estimated GFR (MDRD) 75, Glucose 95, Calcium 8.9 , Total Bilirubin 0.3, AST 7 L, ALT 15, Alkaline Phosphatase 83, Total Protein 7.4, Albumin 3.5, Globulin 3.9 H, Albumin/Globulin Ratio 0.9 L, Lipase 78, WBC 10.2, RBC 4.37, Hgb 13.1, Hct 37.9, MCV 86.7, RDW 12.7, Plt Count 307, MPV 8.8, Gran % 70.2, Gran # 7.1, Lymphocytes % 22.6, Monocytes % 5.1, Eosinophils % 1.4, Basophils % 0.7, Lymphocytes # 2.3, Monocytes # 0.5, Eosinophils # 0.2, Basophils # 0.1, PUBS MCHC 34.5, MCH 29.9 Current Medication Orders Sig/Kathie Start time Last Medication Dose Route Stop Time Status Admin Ibuprofen 600 MG ONCE ONE 07/22 1100 AC PO 07/22 1101 Ibuprofen 0 .STK-MED ONE 07/22 1047 DC PO Iopamidol 75 ML ONCE ONE 07/22 1000 DC 07/22 IV 07/22 1001 0948 Sodium Chloride 10 ML PRN PRN 07/22 1000 AC 07/22 IV 07/22 1117 0948 Morphine Sulfate 2 MG ONCE ONE 07/22 0830 DCr 07/22 IV 07/22 0831 0832 Ondansetron HCl 4 MG ONCE ONE 07/22 0830 DC 07/22 IV 07/22 0831 0831 Sodium Chloride 999 ML .Q6H40M 07/22 0830 AC 07/22 IV 0831 Sodium Chloride 200 ML Q1HP PRN 07/22 0830 AC IV 07/23 0820 Sodium Chloride 1,000 ML .STK-MED ONE 07/22 828 DC IV Morphine Sulfate 0 .STK-MED ONE 07/22 827 DCr .ROUTE Ondansetron HCl 0 .STK-MED ONE 07/22 827 DC .ROUTE Diatrizoate Meglum/ 0 .STK-MED ONE 07/22 08 DC Diatrizoate Sod .ROUTE Sodium Chloride 10 ML PRN PRN 07/22 08 AC IV 07/23 0757 Orders Procedure Date/time Status DIET-NOTHING BY MOUTH 07/[address] ABD/PELVIS REQ 07/22 075 Complete IV SALINE LOCK 07/22 075 Active LIPASE 07/22 758 Complete CBC WITH AUTO DIFF 07/22 758 Complete CHEM 12 PROFILE 07/22 758 Complete Departure Departure Time of Disposition 1047 Disposition DC Home or Self Care(routine) Clinical Impression Primary Impression: Right upper quadrant abdominal pain Condition STABLE Referrals SP AMIN MD Patient Instructions DI for Abdominal Pain-Adult Additional Instructions Stay on clear liquids for the next couple of days and then gradually increase diet. If symptoms worsen, followup with Dr. Amni for re-evaluation Discharge Counseling Counseled pt/family regarding diagnosis, test results, medications/RX, home care, follow up needs Prescriptions Current Visit Scripts Dicyclomine Hcl (Bentyl (Generic) 10MG Capsule) 10 MG PO AC & HS #60 CAP IBUPROFEN (Ibuprofen 600MG) 600 MG PO Q8HP PRN inflammation #60 TAB ED Critical Care Critical Care No If Critical Care minutes are documented, the time involved in the performance of seperately reportable procedures was not counted toward critical care time documented. I directly delivered medical care to this critically ill and/or injured patient. Timely evaluation and treatment was necessary to address the significant organ system(s) dysfunction present in this patient. at 1050
[2017-07-22 11:02] VITALS: BP 146/72
== END 2017-07-22 11:02 | disposition home or self-care (01) ==
LOC: ER 07:43
PROVIDERS: Emergency Medicine
DX: R10.11 Right upper quadrant pain (principal); F17.210 Nicotine dependence, cigarettes, uncomplicated; I10 Essential (primary) hypertension; F43.10 Post-traumatic stress disorder, unspecified; Z79.3 Long term (current) use of hormonal contraceptives; Z79.899 Other long term (current) drug therapy

== ENCOUNTER 2017-10-09 12:39 | Emergency (ER) | payer OTHER ==
[~2017-10-09] VITALS: Ht 165.1 cm; Wt 99.8 kg
[~2017-10-09 12:39] MED LIST changes: +BENTYL GENERIC10 MG PO; +IBUPROFEN600 MG PO
--- OUTSIDE RECORDS SUMMARY | 2017-10-09 12:46 | External Medical Summary Rpt | CCD ---
Demographics Preferred Language Malay Marital Status Unknown Adventist Affiliation Unknown Race Unknown Ethnic Group Unknown Author Author , BRITTA CALLEJAS Address Unknown Phone Immunization No patient found.
--- OUTSIDE RECORDS SUMMARY | 2017-10-09 12:46 | External Medical Summary Rpt | CCD ---
Author Author , BRITTA Organization [facility] Address Unknown Phone [email or web address] Care Team Providers Care Security Threat Analyst Name Role Phone Yohan Lee III, MD, Yohan Muhammad III, MD Purpose Continuity of Care Document - 04-16-2013 through 2016 Problems Code Diagnosis DOS Provider Status 305.1 305.1 04-16-2013 [place] TOBACCO USE [facility] 915.6 915.6 04-16-2013 [place] FOREIGN [facility] BODY [facility] E920.8 E920.8 04-16-2013 [place] ACC-CUTTING [facility] NEC E87.6 HYPOKALEMIA F15.90 OTHER STIMULANT USE, UNSPECIFIED , UNCOMPLICAT ED F41.9 ANXIETY DISORDER, UNSPECIFIED I10 ESSENTIAL (PRIMARY) HYPERTENSIO N N20.9 URINARY CALCULUS, UNSPECIFIED N23 UNSPECIFIED RENAL COLIC O20.0 THREATENED R10.11 RIGHT UPPER QUADRANT PAIN R10.9 UNSPECIFIED ABDOMINAL PAIN R53.1 WEAKNESS R60.9 EDEMA, UNSPECIFIED Allergies, Adverse Reactions, Alerts Type Drug Allergy [...] O2% 97 % Respiratory 20 /min Rate Results Labs Lab Lab Date Result Refere Interp Status Commen Order Detail nces retati t Range on Urinalysis macro (dipstick) panel in Urine (06-18-2017 16:23) Appeara Cloudy CLEAR complet nce of 017 ed Urine 16:23 Bilirub NEGATIV NEG complet in 017 E ed [Presen 16:23 ce] in Urine by Test strip Erythro NEGATIV NEG complet cytes 017 E ed [Presen 16:23 ce] in Urine Color DARK YELLOW complet of 017 YELLOW ed Urine 16:23 Ketones NEGATIV NEG complet 017 E ed [Presen 16:23 ce] in Urine by Automat ed test strip Leukocy NEGATIV NEG complet te 017 E ed esteras 16:23 e [Presen ce] in Urine by Automat ed test strip Nitrite NEGATIV NEG complet 017 E ed [Presen 16:23 ce] in Urine by Test strip Urobili 0.2 NEG complet nogen 017 ed [Presen 16:23 ce] in Urine by Test strip Procedures Procedure DOS Code Location Performer Comment INCIS W 86.05 Yohan REM OF Lalo Muhammad BODY OR [facility] DEV FROM SKIN & SUBCUT TISSUE Encounters Encounter Start End Date Code Location Performer Type Date Emergency EUGENIO Muhammad (ER) 3 12:42 3 13:30 [facility] Yohan May
--- OUTSIDE RECORDS SUMMARY | 2017-10-09 12:46 | External Medical Summary Rpt | CCD ---
Demographics Preferred Language Portuguese Marital Status Unknown Tenriism Affiliation Unknown Race Unknown Ethnic Group Unknown Author Author , BRITTA CALLEJAS Address Unknown Phone Immunization No patient found.
--- OUTSIDE RECORDS SUMMARY | 2017-10-09 12:46 | External Medical Summary Rpt | CCD ---
Author Author , BRITTA Organization [facility] Address Unknown Phone [email or web address] Care Team Providers Care Alliance Manager Name Role Phone Yohan Lee III, MD, Yohan Muhammad III, MD Purpose Continuity of Care Document - 04-16-2013 through 2016 Problems Code Diagnosis DOS Provider Status 305.1 305.1 04-16-[address] [place] [address] [facility] 915.6 915.6 04-16-2013 [place] FOREIGN [facility] BODY [facility] E920.8 E920.8 04-16-2013 [place] ACC-CUTTING [facility] NEC E87.6 HYPOKALEMIA F15.90 OTHER STIMULANT USE, [...] Yohan REM OF Lalo Muhammad BODY OR [facility] DEV FROM SKIN & SUBCUT TISSUE Encounters Encounter Start End Date Code Location Performer Type Date Emergency EUGENIO Muhammad (ER) 3 12:42 3 13:30 [facility] Yohan May
--- OUTSIDE RECORDS SUMMARY | 2017-10-09 12:47 | External Medical Summary Rpt ---
Author Author [employer] Bhatti, [employer] Organization [employer] Address Unknown Phone Unavailable Results Comprehensive metabolic 2000 panel in Serum or Plasma Observa Value Referen Units Interpr Notes Date tion ce etation Range Albumin/G 1.1 - 1.8 No Low No Sep 20 lobulin informati informati 2017 7:54 [Mass on in on in AM ratio] in source source Serum or data data Plasma Albumin 3.4 - 5.0 gm/dL Normal No Sep 20 [Mass/vol informati 2017 7:54 ume] in on in AM Serum or source Plasma data Alkaline 46 - 116 U/L Normal No Sep 20 phosphata informati 2017 7:54 se on in AM [Enzymati source c data activity/ volume] in Serum or Plasma Bilirubin 0.2 - 1.0 mg/dL Normal No Sep 20 .total informati 2017 7:54 [Mass/vol on in AM ume] in source Serum or data Plasma Urea 7 - 18 mg/dL Normal No Sep 20 nitrogen informati 2017 7:54 [Mass/vol on in AM ume] in source Serum or data Plasma Calcium 8.5 - mg/dL Normal No Sep 20 [Mass/vol 10.1 informati 2017 7:54 ume] in on in AM Serum or source Plasma data Chloride 98 - 107 mmoL/L Normal No Sep 20 [Moles/vo informati 2017 7:54 lume] in on in AM Serum or source Plasma data Carbon 21.0 - mmoL/L Normal No Sep 20 dioxide, 32.0 informati 2017 7:54 total on in AM [Moles/vo source lume] in data Serum or Plasma Creatinin 0.55 - mg/dL Normal No Sep 20 e 1.02 informati 2017 7:54 [Mass/vol on in AM ume] in source Serum or data Plasma Creatinin 50 - 200 ML/MIN Normal No Sep 20 e renal informati 2017 7:54 clearance on in AM source predicted data by Cockcroft -Gault formula Estimated 59- ML/MIN No REFERENCE Sep 20 informati RANGE: 2017 7:54 glomerula on in >60 AM r source ML/MIN/1. filtratio data 73 SQUARE n rate METERSIf (GF this patient is -A merican, then multiply theresult by 1.210. Globulin 1.3 - 3.2 gm/dL High No Sep 20 [Mass/vol informati 2017 7:54 ume] in on in AM Serum source data Glucose 74 - 106 mg/dL Normal No Sep 20 [Mass/vol informati 2017 7:54 ume] in on in AM Serum or source Plasma data Potassium 3.5 - 5.1 mmoL/L Normal No Sep 20 informati 2017 7:54 [Moles/vo on in AM lume] in source Serum or data Plasma Sodium 136 - 145 mmoL/L Normal No Sep 20 [Moles/vo informati 2017 7:54 lume] in on in AM Serum or source Plasma data Aspartate 15 - 37 U/L Low No Sep 20 informati 2017 7:54 aminotran on in AM sferase source [Enzymati data c activity/ volume] in Serum or Plasma Alanine 12 - 78 U/L Normal No Sep 20 aminotran informati 2017 7:54 sferase on in AM [Enzymati source c data activity/ volume] in Serum or Plasma Protein 6.4 - 8.2 gm/dL Normal No Sep 20 [Mass/vol informati 2017 7:54 ume] in on in AM Serum or source Plasma data Lipase [Enzymatic activity/volume] in Serum or Plasma Observa Value Referen Units Interpr Notes Date tion ce etation Range Lipase 73 - 393 U/L Normal No Sep 20 [Enzymati informati 2017 7:54 c on in AM activity/ source volume] data in Serum or Plasma CBC W Auto Differential panel in Blood Observa Value Referen Units Interpr Notes Date tion ce etation Range Basophils 0 - 0.2 K/MM3 Normal No Sep 20 informati 2017 7:54 [#/volume on in AM ] in source Blood by data Automated count Basophils 0.1 - 2.0 % Normal No Sep 20 /100 informati 2017 7:54 leukocyte on in AM s in source Blood by data Automated count Eosinophi 0.0 - 0.4 K/mm3 Normal No Sep 20 ls informati 2016 7:54 [#/volume on in AM ] in source Blood by data Automated count Eosinophi 0.1 - % Normal No Sep 20 ls/100 12.0 informati 2017 7:54 leukocyte on in AM s in source Blood by data Automated count Granulocy 1.8 - 7.8 K/mm3 Normal No Sep 20 olga informati 2017 7:54 [#/volume on in AM ] in source Blood by data Automated count Granulocy 37.0 - % Normal No Sep 20 olga/100 80.0 informati 2017 7:54 leukocyte on in AM s in source Blood by data Automated count Hematocri 37.0 - % Normal No Sep 20 t [Volume 47.0 informati 2017 7:54 on in AM Fraction] source of Blood data Hemoglobi 12.2 - g/dL Normal No Sep 20 n 16.2 informati 2017 7:54 [Mass/vol on in AM ume] in source Blood data Lymphocyt 0.7 - 4.5 K/mm3 Normal No Sep 20 es informati 2017 7:54 [#/volume on in AM ] in source Unspecifi data ed specimen by Automated count Lymphocyt 10 - 50.0 % Normal No Sep 20 es informati 2017 7:54 [#/volume on in AM ] in source Unspecifi data ed specimen by Automated count Erythrocy 27 - 31.2 pg Normal No Sep 20 te mean informati 2017 7:54 corpuscul on in AM ar source hemoglobi data n [Entitic mass] Erythrocy 31.8 - g/dl Normal No Sep 20 te mean 35.4 informati 2017 7:54 corpuscul on in AM ar source hemoglobi data n concentra tion [Mass/vol ume] by Automated count Erythrocy 82.2 - fl Normal No Sep 20 te mean 97.8 informati 2017 7:54 corpuscul on in AM ar volume source [Entitic data volume] by Automated count Monocytes 0.1 - 1.0 K/mm3 Normal No Sep 20 informati 2017 7:54 [#/volume on in AM ] in source Blood by data Automated count Monocytes 1.7 - 9.3 % Normal No Sep 20 /100 informati 2017 7:54 leukocyte on in AM s in source Blood by data Automated count Platelet 7.4 - fl Normal No Sep 20 mean 10.4 informati 2017 7:54 volume on in AM [Entitic source volume] data in Blood by Automated count Platelets 142 - 424 K/mm3 Normal No Sep 20 informati 2017 7:54 [#/volume on in AM ] in source Blood data Erythrocy 4.2 - 5.4 M/mm3 Normal No Sep 20 olga informati 2017 7:54 [#/volume on in AM ] in source Amniotic data fluid Erythrocy 11.5 - % Normal No Sep 20 te 17.5 informati 2017 7:54 distribut on in AM ion width source [Entitic data volume] by Automated count Leukocyte 4.8 - K/MM3 Normal No Sep 20 s 10.8 informati 2017 7:54 [#/volume on in AM ] in source Blood data Choriogonadotropin.beta subunit [Units] in 24 hour Urine Observa Value Referen Units Interpr Notes Date tion ce etation Range Choriogon NEG No No No Sep 19 adotropin informati informati informati 2017 2:45 .beta on in on in on in PM subunit source source source [Units] data data data in 24 hour Urine Comprehensive metabolic 2000 panel in Serum or Plasma Observa Value Referen Units Interpr Notes Date tion ce etation Range Albumin/G 1.1 - 1.8 No Low No Sep 19 lobulin informati informati 2017 2:37 [Mass on in on in PM ratio] in source source Serum or data data Plasma Albumin 3.4 - 5.0 gm/dL Normal No Sep 19 [Mass/vol informati 2017 2:37 ume] in on in PM Serum or source Plasma data Alkaline 46 - 116 U/L Normal No Sep 19 phosphata informati 2017 2:37 se on in PM [Enzymati source c data activity/ volume] in Serum or Plasma Bilirubin 0.2 - 1.0 mg/dL Low No Sep 19 .total informati 2017 2:37 [Mass/vol on in PM ume] in source Serum or data Plasma Urea 7 - 18 mg/dL Normal No Sep 19 nitrogen informati 2017 2:37 [Mass/vol on in PM ume] in source Serum or data Plasma Calcium 8.5 - mg/dL Normal No Sep 19 [Mass/vol 10.1 informati 2017 2:37 ume] in on in PM Serum or source Plasma data Chloride 98 - 107 mmoL/L Normal No Sep 19 [Moles/vo informati 2017 2:37 lume] in on in PM Serum or source Plasma data Carbon 21.0 - mmoL/L Normal No Sep 19 dioxide, 32.0 informati 2016 2:37 total on in PM [Moles/vo source lume] in data Serum or Plasma Creatinin 0.55 - mg/dL Normal No Sep 19 e 1.02 informati 2016 2:37 [Mass/vol on in PM ume] in source Serum or data Plasma Creatinin 50 - 200 ML/MIN Normal No Sep 19 e renal informati 2016 2:37 clearance on in PM source predicted data by Cockcroft -Gault formula Estimated 59- ML/MIN No REFERENCE Sep 19 informati RANGE: 2017 2:37 glomerula on in >60 PM r source ML/MIN/1. filtratio data 73 SQUARE n rate METERSIf (GF this patient is -A merican, then multiply theresult by 1.210. Globulin 1.3 - 3.2 gm/dL High No Sep 19 [Mass/vol informati 2016 2:37 ume] in on in PM Serum source data Glucose 74 - 106 mg/dL Normal No Sep [Mass/vol informati 2016 2:37 ume] in on in PM Serum or source Plasma data Potassium 3.5 - 5.1 mmoL/L Normal No Sep 19 inform2016 2:37 [Moles/vo on in PM lume] in source Serum or data Plasma Sodium 136 - 145 mmoL/L Normal No Sep 19 [Moles/vo informati 2016 2:37 lume] in on in PM Serum or source Plasma data Aspartate 15 - 37 U/L Low No Sep 19 informati 2016 2:37 aminotran on in PM sferase source [Enzymati data c activity/ volume] in Serum or Plasma Alanine 12 - 78 U/L Normal No Sep 19 aminotran informati 2016 2:37 sferase on in PM [Enzymati source c data activity/ volume] in Serum or Plasma Protein 6.4 - 8.2 gm/dL Normal No Sep 19 [Mass/vol informati 2016 2:37 ume] in on in PM Serum or source Plasma data CBC W Auto Differential panel in Blood Observa Value Referen Units Interpr Notes Date tion ce etation Range Basophils 0 - 0.2 K/MM3 Normal No Sep 19 inform2016 2:37 [#/volume on in PM ] in source Blood by data Automated count Basophils 0.1 - 2.0 % Normal No Sep 19 /100 informati 2016 2:37 leukocyte on in PM s in source Blood by data Automated count Eosinophi 0.0 - 0.4 K/mm3 Normal No Sep 19 ls informati 2016 2:37 [#/volume on in PM ] in source Blood by data Automated count Eosinophi 0.1 - % Normal No Sep 19 ls/100 12.0 informati 2016 2:37 leukocyte on in PM s in source Blood by data Automated count Granulocy 1.8 - 7.8 K/mm3 Normal No Sep 19 olga informati 2016 2:37 [#/volume on in PM ] in source Blood by data Automated count Granulocy 37.0 - % Normal No Sep 19 olga/100 80.0 informati 2016 2:37 leukocyte on in PM s in source Blood by data Automated count Hematocri 37.0 - % Normal No Sep 19 t [Volume 47.0 informati 2016 2:37 on in PM Fraction] source of Blood data Hemoglobi 12.2 - g/dL Normal No Sep 19 n 16.2 informati 2016 2:37 [Mass/vol on in PM ume] in source Blood data Lymphocyt 0.7 - 4.5 K/mm3 Normal No Sep 19 es informati 2016 2:37 [#/volume on in PM ] in source Unspecifi data ed specimen by Automated count Lymphocyt 10 - 50.0 % Normal No Sep 19 es inform2016 2:37 [#/volume on in PM ] in source Unspecifi data ed specimen by Automated count Erythrocy 27 - 31.2 pg Normal No Sep 19 te mean informati 2016 2:37 corpuscul on in PM ar source hemoglobi data n [Entitic mass] Erythrocy 31.8 - g/dl Normal No Sep 19 te mean 35.4 informati 2016 2:37 corpuscul on in PM ar source hemoglobi data n concentra tion [Mass/vol ume] by Automated count Erythrocy 82.2 - fl Normal No Sep 19 te mean 97.8 informati 2016 2:37 corpuscul on in PM ar volume source [Entitic data volume] by Automated count Monocytes 0.1 - 1.0 K/mm3 Normal No Sep 19 informati 2016 2:37 [#/volume on in PM ] in source Blood by data Automated count Monocytes 1.7 - 9.3 % Normal No Sep 19 /100 informati 2016 2:37 leukocyte on in PM s in source Blood by data Automated count Platelet 7.4 - fl Normal No Jul 19 mean 10.4 informati 2016 2:37 volume on in PM [Entitic source volume] data in Blood by Automated count Platelets 142 - 424 K/mm3 Normal No Sep 19 informati 2016 2:37 [#/volume on in PM ] in source Blood data Erythrocy 4.2 - 5.4 M/mm3 Normal No Jul 19 olga informati 2016 2:37 [#/volume on in PM ] in source Amniotic data fluid Erythrocy 11.5 - % Normal No Jul 21 te 17.5 informati 2016 2:37 distribut on in PM ion width source [Entitic data volume] by Automated count Leukocyte 4.8 - K/MM3 Normal No Jul 19 s 10.8 informati 2016 2:37 [#/volume on in PM ] in source Blood data Comprehensive metabolic 2000 panel in Serum or Plasma Observa Value Referen Units Interpr Notes Date tion ce etation Range Albumin/G 1.1 - 1.8 No Normal No Jun 30 lobulin informati informati 2016 [Mass on in on in 11:29 AM ratio] in source source Serum or data data Plasma Albumin 3.4 - 5.0 gm/dL Normal No Jun 30 [Mass/vol informati 2016 ume] in on in 11:29 AM Serum or source Plasma data Alkaline 46 - 116 U/L Normal No Jun 30 phosphata informati 2016 se on in 11:29 AM [Enzymati source c data activity/ volume] in Serum or Plasma Bilirubin 0.2 - 1.0 mg/dL Normal No Jun 30 .total informati 2016 [Mass/vol on in 11:29 AM ume] in source Serum or data Plasma Urea 7 - 18 mg/dL Normal No Jun 30 nitrogen informati 2016 [Mass/vol on in 11:29 AM ume] in source Serum or data Plasma Calcium 8.5 - mg/dL Normal No Jun 30 [Mass/vol 10.1 informati 2016 ume] in on in 11:29 AM Serum or source Plasma data Chloride 98 - 107 mmoL/L Normal No Jun 30 [Moles/vo informati 2017 lume] in on in 11:29 AM Serum or source Plasma data Carbon 21.0 - mmoL/L Normal No Jun 30 dioxide, 32.0 informati 2016 total on in 11:29 AM [Moles/vo source lume] in data Serum or Plasma Creatinin 0.55 - mg/dL Normal No Jun 30 e 1.02 inform2016 [Mass/vol on in 11:29 AM ume] in source Serum or data Plasma Estimated 59- ML/MIN No REFERENCE Jun 30 informati RANGE: 2017 glomerula on in >60 11:29 AM r source ML/MIN/1. filtratio data 73 SQUARE n rate METERSIf (GF this patient is -A merican, then multiply theresult by 1.210. Globulin 1.3 - 3.2 gm/dL High No Jun 30 [Mass/vol informati 2016 ume] in on in 11:29 AM Serum source data Glucose 74 - 106 mg/dL Normal No Jun 30 [Mass/vol informati 2016 ume] in on in 11:29 AM Serum or source Plasma data Potassium 3.5 - 5.1 mmoL/L Normal No Jun 302016 [Moles/vo on in 11:29 AM lume] in source Serum or data Plasma Sodium 136 - 145 mmoL/L Normal No Jun 30 [Moles/vo informati 2016 lume] in on in 11:29 AM Serum or source Plasma data Aspartate 15 - 37 U/L Low No Jun 302016 aminotran on in 11:29 AM sferase source [Enzymati data c activity/ volume] in Serum or Plasma Alanine 12 - 78 U/L Normal No Jun 30 aminotran 2016 sferase on in 11:29 AM [Enzymati source c data activity/ volume] in Serum or Plasma Protein 6.4 - 8.2 gm/dL Normal No Jun 30 [Mass/vol informati 2016 ume] in on in 11:29 AM Serum or source Plasma data Choriogonadotropin [Units/volume] in Serum or Plasma Observa Value Referen Units Interpr Notes Date tion ce etation Range Choriogon NEG No No No Jun 30 adotropin informati informati informati 2017 on in on in on in 11:29 AM [Units/vo source source source lume] in data data data Serum or Plasma CBC W Auto Differential panel in Blood Observa Value Referen Units Interpr Notes Date tion ce etation Range Basophils 0 - 0.2 K/MM3 Normal No Jun 30 inform2016 [#/volume on in 11:29 AM ] in source Blood by data Automated count Basophils 0.1 - 2.0 % Normal No Jun 30 /100 inform2016 leukocyte on in 11:29 AM s in source Blood by data Automated count Eosinophi 0.0 - 0.4 K/mm3 Normal No Jun 30 ls informati 2016 [#/volume on in 11:29 AM ] in source Blood by data Automated count Eosinophi 0.1 - % Normal No Jun 30 ls/100 12.0 informati 2016 leukocyte on in 11:29 AM s in source Blood by data Automated count Granulocy 1.8 - 7.8 K/mm3 Normal No Jun 30 olga informati 2016 [#/volume on in 11:29 AM ] in source Blood by data Automated count Granulocy 37.0 - % Normal No Jun 30 olga/100 80.0 informati 2016 leukocyte on in 11:29 AM s in source Blood by data Automated count Hematocri 37.0 - % Normal No Jun 30 t [Volume 47.0 informati 2016 on in 11:29 AM Fraction] source of Blood data Hemoglobi 12.2 - g/dL Normal No Jun 30 n 16.2 informati 2016 [Mass/vol on in 11:29 AM ume] in source Blood data Lymphocyt 0.7 - 4.5 K/mm3 Normal No Jun 30 es informati 2016 [#/volume on in 11:29 AM ] in source Unspecifi data ed specimen by Automated count Lymphocyt 10 - 50.0 % Normal No Jun 30 es inform2016 [#/volume on in 11:29 AM ] in source Unspecifi data ed specimen by Automated count Erythrocy 27 - 31.2 pg Normal No Jun 30 te mean inform2016 corpuscul on in 11:29 AM ar source hemoglobi data n [Entitic mass] Erythrocy 31.8 - g/dl Normal No Jun 30 te mean 35.4 informati 2016 corpuscul on in 11:29 AM ar source hemoglobi data n concentra tion [Mass/vol ume] by Automated count Erythrocy 82.2 - fl Normal No Jun 30 te mean 97.8 informati 2016 corpuscul on in 11:29 AM ar volume source [Entitic data volume] by Automated count Monocytes 0.1 - 1.0 K/mm3 Normal No Jun 30 inform2016 [#/volume on in 11:29 AM ] in source Blood by data Automated count Monocytes 1.7 - 9.3 % Normal No Jun 30 /100 inform2016 leukocyte on in 11:29 AM s in source Blood by data Automated count Platelet 7.4 - fl Normal No Jun 30 mean 10.4 inform2016 volume on in 11:29 AM [Entitic source volume] data in Blood by Automated count Platelets 142 - 424 K/mm3 Normal No Jun 30 informati 2016 [#/volume on in 11:29 AM ] in source Blood data Erythrocy 4.2 - 5.4 M/mm3 Normal No Jun 30 olga informati 2016 [#/volume on in 11:29 AM ] in source Amniotic data fluid Erythrocy 11.5 - % Normal No Jun 30 te 17.5 informati 2016 distribut on in 11:29 AM ion width source [Entitic data volume] by Automated count Leukocyte 4.8 - K/MM3 High No Jun 30 s 10.8 informati 2016 [#/volume on in 11:29 AM ] in source Blood data Amylase [Enzymatic activity/volume] in Serum or Plasma Observa Value Referen Units Interpr Notes Date tion ce etation Range Amylase 25 - 115 U/L Normal No Jun 18 [Enzymati informati 2016 4:40 c on in PM activity/ source volume] data in Serum or Plasma Comprehensive metabolic 2000 panel in Serum or Plasma Observa Value Referen Units Interpr Notes Date tion ce etation Range Albumin/G 1.1 - 1.8 No Low No Jun 18 lobulin informati informati 2016 4:40 [Mass on in on in PM ratio] in source source Serum or data data Plasma Albumin 3.4 - 5.0 gm/dL Normal No Jun 18 [Mass/vol informati 2016 4:40 ume] in on in PM Serum or source Plasma data Alkaline 46 - 116 U/L Normal No Jun 18 phosphata informati 2016 4:40 se on in PM [Enzymati source c data activity/ volume] in Serum or Plasma Bilirubin 0.2 - 1.0 mg/dL Normal No Jun 18 .total informati 2017 4:40 [Mass/vol on in PM ume] in source Serum or data Plasma Urea 7 - 18 mg/dL Normal No Jun 18 nitrogen informati 2017 4:40 [Mass/vol on in PM ume] in source Serum or data Plasma Calcium 8.5 - mg/dL Normal No Jun 18 [Mass/vol 10.1 informati 2016 4:40 ume] in on in PM Serum or source Plasma data Chloride 98 - 107 mmoL/L Normal No Jun 18 [Moles/vo informati 2016 4:40 lume] in on in PM Serum or source Plasma data Carbon 21.0 - mmoL/L Normal No Jun 18 dioxide, 32.0 informati 2016 4:40 total on in PM [Moles/vo source lume] in data Serum or Plasma Creatinin 0.55 - mg/dL Normal No Jun 18 e 1.02 informati 2016 4:40 [Mass/vol on in PM ume] in source Serum or data Plasma Creatinin 50 - 200 ML/MIN Normal No Jun 18 e renal informati 2016 4:40 clearance on in PM source predicted data by Cockcroft -Gault formula Estimated 59- ML/MIN No REFERENCE Jun 18 informati RANGE: 2017 4:40 glomerula on in >60 PM r source ML/MIN/1. filtratio data 73 SQUARE n rate METERSIf (GF this patient is -A merican, then multiply theresult by 1.210. Globulin 1.3 - 3.2 gm/dL High No Jun 18 [Mass/vol informati 2016 4:40 ume] in on in PM Serum source data Glucose 74 - 106 mg/dL Normal No Jun 18 [Mass/vol informati 2016 4:40 ume] in on in PM Serum or source Plasma data Potassium 3.5 - 5.1 mmoL/L Normal No Jun 18 informati 2016 4:40 [Moles/vo on in PM lume] in source Serum or data Plasma Sodium 136 - 145 mmoL/L Normal No Jun 18 [Moles/vo informati 2016 4:40 lume] in on in PM Serum or source Plasma data Aspartate 15 - 37 U/L Low No Jun 18 informati 2016 4:40 aminotran on in PM sferase source [Enzymati data c activity/ volume] in Serum or Plasma Alanine 12 - 78 U/L Normal No Jun 18 aminotran informati 2016 4:40 sferase on in PM [Enzymati source c data activity/ volume] in Serum or Plasma Protein 6.4 - 8.2 gm/dL Normal No Jun 18 [Mass/vol informati 2016 4:40 ume] in on in PM Serum or source Plasma data Lipase [Enzymatic activity/volume] in Serum or Plasma Observa Value Referen Units Interpr Notes Date tion ce etation Range Lipase 73 - 393 U/L Normal No Jun 18 [Enzymati informati 2016 4:40 c on in PM activity/ source volume] data in Serum or Plasma CBC W Auto Differential panel in Blood Observa Value Referen Units Interpr Notes Date tion ce etation Range Basophils 0 - 0.2 K/MM3 Normal No Jun 18 informati 2016 4:40 [#/volume on in PM ] in source Blood by data Automated count Basophils 0.1 - 2.0 % Normal No Jun 18 /100 informati 2016 4:40 leukocyte on in PM s in source Blood by data Automated count Eosinophi 0.0 - 0.4 K/mm3 Normal No Jun 18 ls informati 2016 4:40 [#/volume on in PM ] in source Blood by data Automated count Eosinophi 0.1 - % Normal No Jun 18 ls/100 12.0 informati 2016 4:40 leukocyte on in PM s in source Blood by data Automated count Granulocy 1.8 - 7.8 K/mm3 Normal No Jun 18 olga informati 2016 4:40 [#/volume on in PM ] in source Blood by data Automated count Granulocy 37.0 - % Normal No Jun 18 olga/100 80.0 informati 2016 4:40 leukocyte on in PM s in source Blood by data Automated count Hematocri 37.0 - % Normal No Jun 18 t [Volume 47.0 informati 2016 4:40 on in PM Fraction] source of Blood data Hemoglobi 12.2 - g/dL No No Jun 18 n 16.2 informati informati 2016 4:40 [Mass/vol on in on in PM ume] in source source Blood data data Lymphocyt 0.7 - 4.5 K/mm3 Normal No Jun 18 es informati 2016 4:40 [#/volume on in PM ] in source Unspecifi data ed specimen by Automated count Lymphocyt 10 - 50.0 % Normal No Jun 18 es informati 2016 4:40 [#/volume on in PM ] in source Unspecifi data ed specimen by Automated count Erythrocy 27 - 31.2 pg Normal No Jun 18 te mean informati 2016 4:40 corpuscul on in PM ar source hemoglobi data n [Entitic mass] Erythrocy 31.8 - g/dl Normal No Jun 18 te mean 35.4 informati 2016 4:40 corpuscul on in PM ar source hemoglobi data n concentra tion [Mass/vol ume] by Automated count Erythrocy 82.2 - fl Normal No Jun 18 te mean 97.8 informati 2016 4:40 corpuscul on in PM ar volume source [Entitic data volume] by Automated count Monocytes 0.1 - 1.0 K/mm3 Normal No Jun 18 informati 2016 4:40 [#/volume on in PM ] in source Blood by data Automated count Monocytes 1.7 - 9.3 % Normal No Jun 18 /100 informati 2016 4:40 leukocyte on in PM s in source Blood by data Automated count Platelet 7.4 - fl Normal No Jun 18 mean 10.4 informati 2016 4:40 volume on in PM [Entitic source volume] data in Blood by Automated count Platelets 142 - 424 K/mm3 Normal No Jun 18 informati 2016 4:40 [#/volume on in PM ] in source Blood data Erythrocy 4.2 - 5.4 M/mm3 Normal No Jun 18 olga ati 2016 4:40 [#/volume on in PM ] in source Amniotic data fluid Erythrocy 11.5 - % Normal No Jun 18 te 17.5 informati 2016 4:40 distribut on in PM ion width source [Entitic data volume] by Automated count Leukocyte 4.8 - K/MM3 High No Jun 18 s 10.8 informati 2016 4:40 [#/volume on in PM ] in source Blood data Urinalysis macro (dipstick) panel in Urine Observa Value Referen Units Interpr Notes Date tion ce etation Range Appeara Cloudy CLEAR No No No Jun 18 nce of informa informa informa 2017 Urine tion in tion in tion in 4:23 PM source source source data data data Bilirub NEGATIV NEG No No No Jun 18 in E informa informa informa 2016 [Presen tion in tion in tion in 4:23 PM ce] in source source source Urine data data data by Test strip Erythro NEGATIV NEG No No No Jun 18 cytes E informa informa informa 2016 [Presen tion in tion in tion in 4:23 PM ce] in source source source Urine data data data Color DARK YELLOW No No No Jun 18 of YELLOW informa informa informa 2017 Urine tion in tion in tion in 4:23 PM source source source data data data Glucose NEG No No No Jun 18 [Mass/vol informati informati informati 2017 4:23 ume] in on in on in on in PM Urine by source source source Test data data data strip Ketones NEGATIV NEG mg/dL No No Jun 18 E informa informa 2016 [Presen tion in tion in 4:23 PM ce] in source source Urine data data by Automat ed test strip pH of 5.0 - 8.5 No Normal No Jun 18 Urine informati informati 2017 4:23 on in on in PM source source data data Protein NEG mg/dL No No Jun 18 [Mass/vol informati informati 2017 4:23 ume] in on in on in PM Urine by source source Automated data data test strip Specific 1.005 - No Normal No Jun 18 gravity 1.030 informati informati 2016 4:23 of Urine on in on in PM source source data data Leukocy NEGATIV NEG No No No Jun 18 te E informa informa informa 2017 esteras tion in tion in tion in 4:23 PM e source source source [Presen data data data ce] in Urine by Automat ed test strip Nitrite NEGATIV NEG No No No Jun 18 E informa informa informa 2016 [Presen tion in tion in tion in 4:23 PM ce] in source source source Urine data data data by Test strip Urobili 0.2 NEG E.U./dL No No Jun 18 nogen informa informa 2016 [Presen tion in tion in 4:23 PM ce] in source source Urine data data by Test strip
[2017-10-09 13:00] LABS: URINE BILIRUBIN - DIPSTICK NEGATIVE (NEG); URINE BLOOD NEGATIVE (NEG)
[2017-10-09] MEDS ORDERED: FLONASE 50 MCG16 GM (13:11)
[2017-10-09] MEDS ORDERED: CLARITIN 10MG T10 MG PO (13:11)
[2017-10-09] MEDS ORDERED: MACROBID100 M3 PO (13:11)
--- NOTE | 2017-10-09 13:12 | [facility]gent [facility] Report ---
History of Present Issue Date/Time Seen by Provider 10/09/17 1302 Visit Reason Pt arrived:Walked Presenting Problem:PT STATES BOTH EARS ARE HURTING. PT STATES SHE SUSPECTS SHE HAS A UTI WELL. Location if Accident: Onset of symptoms date/time:/ or onset unknown for:MEDICAL HX UNKNOWN Have you (or family members/close friends) recently traveled outside the [place]? N If Yes, where/when: Have you had exposure to infectious disease within the past month? TB? Other? Specify: Patient state that she has been having pain in both ears and having some burning when she urinates along with lower back pain State that she feels like she has to go to the bathroom frequently State that she did this the last time she had a UTI ALLERGIES Coded Allergies: acetaminophen (From [facility]) (07/22/17) cefaclor (From [facility]) (07/22/17) hydrocodone (From [facility]) (07/22/17) Home Medications Active Scripts IBUPROFEN (Ibuprofen 600MG) 600 MG PO Q8HP PRN inflammation #60 TAB Prov: 07/22/17 Reported Medications Sertraline Hcl (Sertraline 50MG) 75 MG PO DAILY #30 HYDROXYZINE HCL (Hydroxyzine HCl) 25 MG PO QHS #30 VENLAFAXINE HCL (Venlafaxine HCl ER) 75 MG PO DAILY #90 Cyclobenzaprine Hcl (Cyclobenzaprine) 5 MG PO DAILY #30 LABETALOL HCL (Labetalol HCl) 200 MG PO BID #60 Potassium Chloride (POTASSIUM CHLORIDE 10mEq CAP) 10 MEQ PO DAILY #30 NORGESTIMATE-ETHINYL ESTRADIOL ([place] 28 Tablet) 1 TAB PO DAILY #28 CHOLECALCIFEROL (VITAMIN D3) (Vitamin D) 1,000 IUNITS PO Q 48 HOURS History Medical History General CAD? No Angina: No IN: No Hypertension? Yes Hyperlipidemia? No CHF? No DVT? No PE? No COPD? No Asthma? No Anemia? No GERD? No Gastric ulcers? No GI Bleed? No Hernia? Yes Thyroid Problems? No Hypothyroidism? No CVA? No Seizures? No Diabetes? No Renal Insuffiency? No UTI? Yes Stones? Yes BPH? No GB Disease: No Nephritic Syndrome? No Asplenia? No Hepatitis? No Sickle Cell Disease? No Arthritis? Yes Migraines? No Cataracts? No Glaucoma? No MRSA? No HIV? No TB? No Anxiety? No Depression? No Cancer? No More? Yes Additional hx: PTSD, HIATAL HERNIA, HEART MURMUR Immunization HX DT/Tetanus 1-4 Years Ago Flu Refused Pneumonia Refuses Surgical Hx Previous Surgery?Y IUD PLACEMENT EXPLORATORY LAP 2008 WISDOM TEETH REMOVED D+C TUBAL Family History Family HX Diabetes Yes CAD Yes Hypertension Yes Hyperlipidemia Yes Cancer Yes Social History Smoking Hx Smoker: Current Every Day Smoker Tobacco: Yes Type Cigarettes Packs/day 1 1/2 - 2 Packs Alcohol Alcohol: No Review of Systems All Other Systems Reviewed and Negative ENT nose congestion. Genitourinary dysuria, frequency, pain. Physical Exam Vital Signs Vital Signs Date Time Temp Pulse Resp B/P Pulse O2 O2 Flow FiO2 Ox Delivery Rate 10/09 1250 97.9 103 20 134/86 96 General Appearance normal appearance, WD/WN, no apparent distress Ear, Nose, Throat Bilateral ears no redness,Tm buldging clear, reports clear drainage from nose Respiratory Status Yes: trachea midline, chest symmetrical, non tender chest. No: respiratory distress. Lung Sounds bilateral: normal breath sounds, lungs clear. Cardiovascular normal exam, regular rate/rhythm, no peripheral edema Gastrointestinal normal bowel sounds, normal exam, non tender, no guarding, no rebound Neurologic alert, normal exam, oriented x 3 Medical Decision Making LABS/Meds/Orders Pt receiving controlled substance in ED? No Results/Orders Laboratory Tests 10/09/17 1249: Urine Color YELLOW, Urine Appearance Clear, Urine pH 6.5, Ur Specific [place] 1.020, Urine Protein NEGATIVE, Urine Ketones NEGATIVE, Urine Blood NEGATIVE, Urine Nitrate NEGATIVE, Urine Bilirubin NEGATIVE, Urine Urobilinogen 0.2, Ur Leukocyte Esterase TRACE H, Urine Glucose NEGATIVE Orders Procedure Date/time Status [facility] URINE DIPSTICK 10/09 1249 Complete Departure Departure Time of Disposition 1308 Disposition DC Home or Self Care(routine) Clinical Impression Primary Impression: UTI (urinary tract infection) Qualifiers: Urinary tract infection type: site unspecified Hematuria presence: without hematuria Qualified Code: N39.0 - Urinary tract infection, site not specified Condition STABLE Referrals Toan Stewart MD (Family): 3 Days-Call Office if no improvement Patient Instructions DI for Urinary Tract Infection (UTI), Fluticasone Nasal [place], Loratadine Additional Instructions *Increase fluids. Water not Soda or Tea *Start antibiotic immediately and be sure to take as ordered for the FULL length of time although you should start to see improvement over the next 48 hours *You should not use Pyridium for more than 48 hours. If so , follow up with your primary physician to review urine culture and ensure that antibiotic is adequate for infection *Be SURE to follow up anytime for new or worsening symptoms. AND in 48 hours for urine culture results AND in 10-14 days to repeat UA to ensure infection is resolved and blood no longer present *Be sure to let your PCP know that we sent urine cultures from the [facility] so they can follow up to ensure that you area the on the correct antibiotic Discharge Counseling Counseled pt/family regarding diagnosis, test results, medications/RX, home care, follow up needs Prescriptions Current Visit Scripts NITROFURANTOIN MONOHYD/M-CRYST (Macrobid 100 MG Capsule) 100 MG PO BID #14 CAP Loratadine (Claritin 10MG) 10 MG PO DAILY #30 TAB Fluticasone Propionate (Flonase 50 Mcg Nasal [place]) 2 SPRAY NA DAILY #1 BOT at 131
[2017-10-09 13:14] VITALS: BP 130/76
[2017-10-16] MEDS ORDERED: AUGMENTIN 875-1 EACH PO (11:03)
== END 2017-10-09 13:15 | disposition home or self-care (01) ==
LOC: UTC 12:39
PROVIDERS: Nurse Practitioner
DX: N39.0 Urinary tract infection, site not specified (principal); H92.03 Otalgia, bilateral; I10 Essential (primary) hypertension; F17.210 Nicotine dependence, cigarettes, uncomplicated; Z88.6 Allergy status to analgesic agent; Z88.5 Allergy status to narcotic agent; Z88.8 Allergy status to other drugs, medicaments and biological substances; Z79.3 Long term (current) use of hormonal contraceptives; Z79.899 Other long term (current) drug therapy